=== PATIENT | male | born 1945 | race Caucasian/White ===

== ENCOUNTER 2016-12-29 01:04 | Emergency (ER) | payer MEDICARE, BC ==
[2016-12-29 01:17] VITALS: BP 171/94
[2016-12-29] MEDS ORDERED: predniSONE 20 MG Tab PO ONE (01:18)
[2016-12-29] MEDS ORDERED: Gabapentin 300 MG Cap PO ONE (01:19)
[2016-12-29] MEDS ORDERED: Ketorolac 30 MG/ML SDV IM ONE (01:19)
--- NOTE | 2016-12-29 01:26 | EDM.PDOC ---
ED HPI GENERAL MEDICAL PROBLEM - General Chief Complaint: Lower Extremity Injury/Pain Stated Complaint: LT LEG PAIN Time Seen by Provider: 12/29/16 01:10 Source of Information: Reports: Patient, Family History Limitations: Reports: No Limitations - History of Present Illness INITIAL COMMENTS - FREE TEXT/NARRATIVE: 71 yo male here with L sided sciatica sx's. Went to a chiropractor yesterday and states this made things worse. Has an appt to see one of the local PA's later today, but was not getting sufficient relief from ibuprofen/acetaminophen so that he could sleep. His sx's have been coming on for over a week. Onset: Gradual Onset Date: 12/19/16 Duration: Day(s):, Getting Worse Location: Reports: Lower Extremity, Left Quality: Reports: Ache Severity: Severe Improves with: Reports: None Worsens with: Reports: Movement Context: Reports: Other (unknown) Associated Symptoms: Reports: No Other Symptoms Treatments INTERNAL AUDIT DIRECTOR: Reports: Acetaminophen, NSAIDS Left Leg Pain Score (Numeric/FACES): 10 - Related Data Allergies Allergy/AdvReac Type Severity Reaction Status Date / Time No Known Allergies Allergy Verified 12/29/16 01:09 Home Meds: Home Meds Lisinopril [Zestril] 5 mg PO DAILY 05/02/15 [History] Lutein 20 mg PO DAILY 05/02/15 [History] Famotidine 40 mg PO DAILY #30 tablet 12/28/15 [Rx] Max-3 Fatty Acids [Fish Oil] 1,000 mg PO DAILY 12/28/15 [History] atorvaSTATin [Lipitor] 10 mg PO BEDTIME 12/29/16 [History] Past Medical History HEENT History: Reports: Impaired Vision Cardiovascular History: Reports: Hypertension Genitourinary History: Reports: Prostate Disorder - Past Surgical History Other Male Surgeries/Procedures: PROSTATE SURGERY Social & Family History - Tobacco Use Smoking Status *Q: Never Smoker Years of Tobacco use: 20 Used Tobacco, but Quit: Yes Second Hand Smoke Exposure: No - Caffeine Use Caffeine Use: Reports: Coffee - Recreational Drug Use Recreational Drug Use: No Review of Systems - Review of Systems Review Of Systems: See Below Constitutional: Reports: No Symptoms Respiratory: Reports: No Symptoms Cardiovascular: Reports: No Symptoms GI/Abdominal: Reports: No Symptoms Genitourinary: Reports: No Symptoms Musculoskeletal: Reports: Other (L hip region pain.). Denies: Back Pain Skin: Reports: No Symptoms Neurological: Reports: Numbness (Areas of his left leg) Psychiatric: Reports: No Symptoms ED EXAM, GENERAL - Physical Exam Exam: See Below Exam Limited By: No Limitations General Appearance: Alert, WD/WN, No Apparent Distress Ear Exam: Bilateral Ear: Auricle Normal Nose: Normal Inspection Throat/Mouth: Normal Inspection, Normal Lips, Normal Oropharynx, Normal Voice, No Airway Compromise Head: Atraumatic, Normocephalic Neck: Normal Inspection, Supple Respiratory/Chest: No Respiratory Distress, Lungs Clear, Normal Breath Sounds, No Accessory Muscle Use Cardiovascular: Regular Rate, Rhythm, No Edema GI/Abdominal: Normal Bowel Sounds, Soft, No Distention Back Exam: Normal Inspection, Full Range of Motion. No: CVA Tenderness (R), CVA Tenderness (L), Muscle Spasm, Paraspinal Tenderness, Vertebral Tenderness Extremities: Normal Inspection, Normal Range of Motion, Non-Tender, Other (No limitation to internal/external rotation of the L hip.) Neurological: Alert, Oriented, CN II-XII Intact, Normal Cognition, Other ( Straight leg raising positive on the left. ) Psychiatric: Normal Affect, Normal Mood Skin Exam: Warm, Dry, Intact, Normal Color, No Rash Lymphatic: No Adenopathy Course - Vital Signs Last Recorded V/S: Last Vital Signs Temp 37.1 C 12/29/16 01:15 Pulse 103 H 12/29/16 01:15 Resp 20 12/29/16 01:15 BP 171/94 H 12/29/16 01:15 Pulse Ox 99 12/29/16 01:15 - Orders/Labs/Meds Orders: Active Orders 24 hr Category Date Time Status Gabapentin [Neurontin] Med 12/29/16 01:19 Once 300 mg PO ONETIME ONE Ketorolac [Toradol] Med 12/29/16 01:19 Once 30 mg IM ONETIME ONE predniSONE Med 12/29/16 01:18 Once 40 mg PO ONETIME ONE Medication Orders Gabapentin (Neurontin) 300 mg PO ONETIME ONE Stop: 12/29/16 01:20 Ketorolac Tromethamine (Toradol) 30 mg IM ONETIME ONE Stop: 12/29/16 01:20 Prednisone (Prednisone) 40 mg PO ONETIME ONE Stop: 12/29/16 01:19 Meds: Medications Generic Name Dose Route Start Last Admin Trade Name Nita PRN Reason Stop Dose Admin Gabapentin 300 mg 12/29/16 01:19 Neurontin PO 12/29/16 01:20 ONETIME ONE Ketorolac Tromethamine 30 mg 12/29/16 01:19 Toradol IM 12/29/16 01:20 ONETIME ONE Prednisone 40 mg 12/29/16 01:18 Prednisone PO 12/29/16 01:19 ONETIME ONE Departure - Departure Time of Disposition: 01:45 Disposition: Home, Self-Care 01 Condition: Fair Clinical Impression: Sciatica of left side - Discharge Information Referrals: Loulou Nieto, INPATIENT SERVICES RN [Primary Care Provider] - - My Orders Last 24 Hours: My Active Orders 12/29/16 01:18 predniSONE 40 mg PO ONETIME ONE 12/29/16 01:19 Gabapentin [Neurontin] 300 mg PO ONETIME ONE Ketorolac [Toradol] 30 mg IM ONETIME ONE - Assessment/Plan Last 24 Hours: My Active Orders 12/29/16 01:18 predniSONE 40 mg PO ONETIME ONE 12/29/16 01:19 Gabapentin [Neurontin] 300 mg PO ONETIME ONE Ketorolac [Toradol] 30 mg IM ONETIME ONE
[2016-12-29] MEDS ORDERED: Acetaminophen/oxyCODONE 325-5 MG Tab PO ONE (01:34)
== END 2016-12-29 01:35 | disposition home or self-care (01) ==
LOC: FB.ED 01:04
DX: M54.32 Sciatica, left side (principal); H54.7 Unspecified visual loss; I10 Essential (primary) hypertension; Z79.899 Other long term (current) drug therapy
CPT/HCPCS: 96372; 99283; A9270; J1885

== ENCOUNTER 2017-07-18 07:05 | Day surgery (SDC) | payer MEDICARE, BC ==
[2017-07-18] MEDS ORDERED: Sodium Chloride 0.9% 10 ML Syringe FLUSH PRN (07:15)
[2017-07-18] MEDS ORDERED: Lactated Ringers 1,000 ML IV SCH (07:15)
--- NOTE | 2017-07-18 08:25 | PCM.HP ---
H&P History of Present Illness - General Date of Service: 07/18/17 Admit Problem/Dx: Admission Diagnosis/Problem Admission Diagnosis/Problem Colonoscopy Source of Information: Patient, Old Records History Limitations: Reports: No Limitations - History of Present Illness Initial Comments - Free Text/Narative: Here for colonoscopy for hx of polyps - Related Data Allergies/Adverse Reactions: Allergies Allergy/AdvReac Type Severity Reaction Status Date / Time No Known Allergies Allergy Verified 07/15/17 14:31 Home Medications: Home Meds Lisinopril [Zestril] 5 mg PO DAILY 05/02/15 [History] Lutein 20 mg PO DAILY 05/02/15 [History] [place]-3 Fatty Acids [Fish Oil] 1,000 mg PO DAILY 12/28/15 [History] Acetaminophen/oxyCODONE [Percocet 325-7.5 MG] 1 - 2 tab PO Q4H PRN #20 tab 12/29 [Rx] atorvaSTATin [Lipitor] 10 mg PO BEDTIME 12/29/16 [History] Ascorbic Acid [Vitamin C] 250 mg PO DAILY 07/15/17 [History] Famotidine 40 mg PO DAILY PRN 07/15/17 [History] Losartan [Cozaar] 25 mg PO DAILY 07/15/17 [History] Lutein 20 mg PO DAILY 07/15/17 [History] Multivitamin with Minerals [Multiple Vitamin] 1 tab PO DAILY 07/15/17 [History] Omeprazole 40 mg PO DAILY 07/15/17 [History] Propylene Glycol/Peg 400 [Systane 0.3-0.4% Eye Drops] 1 drop OP DAILY 07/15/17 [ History] Sildenafil Citrate [Sildenafil] 20 mg PO ASDIRECTED PRN 07/15/17 [History] metFORMIN [Glucophage XR] 500 mg PO BIDMEALS 07/15/17 [History] Past Medical History HEENT History: Reports: Impaired Vision Cardiovascular History: Reports: High Cholesterol, Hypertension Respiratory History: Reports: Sleep Apnea Other Respiratory History: STATES TESTED, BUT FOUND NOT TO HAVE ISSUES. Gastrointestinal History: Reports: Gastritis Genitourinary History: Reports: Prostate Disorder Other Genitourinary History: STATES HAD PROSTATE REMOVED A FEW YEARS AGO. Musculoskeletal History: Reports: None Neurological History: Reports: None Psychiatric History: Reports: None Endocrine/Metabolic History: Reports: Diabetes, Type II Hematologic History: Reports: None Immunologic History: Reports: None Oncologic (Cancer) History: Reports: Basal Cell Carcinoma Dermatologic History: Reports: None, Other (See Below) Other Dermatologic History: SKIN CA OF NECK - Infectious Disease History Infectious Disease History: Reports: Mumps - Past Surgical History Head Surgeries/Procedures: Reports: None GI Surgical History: Reports: Colonoscopy, EGD, Hernia, Inguinal Other GI Surgeries/Procedures: BILATERAL INGUINAL HERNIA Other Male Surgeries/Procedures: PROSTATE SURGERY Social & Family History - Family History GI: Reports: Colon Polyps Other GI Family History: STATES BELIEVES DAD HAD COLON POLYPS - Tobacco Use Smoking Status *Q: Never Smoker Years of Tobacco use: 20 Used Tobacco, but Quit: Yes Second Hand Smoke Exposure: No - Caffeine Use Caffeine Use: Reports: Coffee - Recreational Drug Use Recreational Drug Use: No H&P Review of Systems - Review of Systems: Review Of Systems: ROS reveals no pertinent complaints other than HPI. General: Reports: No Symptoms Pulmonary: Reports: No Symptoms Cardiovascular: Reports: No Symptoms Gastrointestinal: Reports: No Symptoms Exam - Exam Exam: See Below - Vital Signs Vital Signs: Last Vital Signs Temp 98.2 F 07/18/17 07:43 Pulse 58 L 07/18/17 07:43 Resp 20 07/18/17 07:43 BP 136/94 H 07/18/17 07:43 Pulse Ox 100 07/18/17 07:43 Weight: 92.714 kg - Exam General: Alert, Oriented Lungs: Clear to Auscultation, Normal Respiratory Effort Cardiovascular: Regular Rate, Regular Rhythm GI/Abdominal Exam: Soft, Non-Tender *Q Meaningful Use (ADM) - VTE *Q VTE Criteria *Q: - Stroke *Q Stroke Criteria *Q: - AMI *Q AMI Criteria *Q: Problem List Initiated/Reviewed/Updated: Yes Orders Last 24hrs: Active Orders 24 hr Category Date Time Status Patient Status [ADT] Routine ADT 07/18/17 07:15 Ordered Blood Glucose Check, Bedside [RC] ONETIME Care 07/18/17 07:15 Active Patient to Empty Bladder [RC] ASDIRECTED Care 07/18/17 07:15 Active Verify Patient Consent Obtain [RC] ASDIRECTED Care 07/18/17 07:15 Active Nothing Per Oral Diet [DIET] Diet 07/18/17 Breakfast Ordered Lactated Ringers [Ringers, Lactated] 1,000 ml Med 07/18/17 07:15 Active IV ASDIRECTED Sodium Chloride 0.9% [Saline Flush] Med 07/18/17 07:15 Active 10 ml FLUSH ASDIRECTED PRN Peripheral IV Insertion Adult [OM.PC] Routine Oth 07/18/17 07:15 Ordered Medication Orders Lactated Ringer's (Ringers, Lactated) 1,000 mls @ 125 mls/hr IV ASDIRECTED CJ Last Admin: 07/18/17 07:58 Dose: 125 mls/hr Sodium Chloride (Saline Flush) 10 ml FLUSH ASDIRECTED PRN PRN Reason: Keep Vein Open Assessment/Plan Comment:: Hx Colon polyps; ok to proceed with colonoscopy
[2017-07-18] MEDS ORDERED: Midazolam 1 MG/ML 2 ML SDV IV ONE (08:35)
[2017-07-18] MEDS ORDERED: Propofol 200 MG/20 ML SDV IV ONE (08:35)
--- NOTE | 2017-07-18 09:04 | PCM.OPNOTE ---
- General Post-Op/Procedure Note Date of Surgery/Procedure: 07/18/17 Operative Procedure(s): Colonoscopy Findings: Sig tics Pre Op Diagnosis: Hx Polyps Post-Op Diagnosis: Same Anesthesia Technique: MAC Primary Surgeon: Harlan Schilling Anesthesia Provider: Kiah Navarro Complications: None Condition: Good
[2017-07-18 09:52] VITALS: BP 132/95
--- NOTE | 2017-07-18 10:52 | OR ---
DATE OF OPERATION: 07/18/2017 SURGEON: Harlan Schilling MD PREOPERATIVE DIAGNOSES: 1. History of colon polyps. 2. Diverticulosis. POSTOPERATIVE DIAGNOSIS: Sigmoid diverticulosis. PROCEDURE PERFORMED: Colonoscopy. ANESTHESIA: IV sedation. PROCEDURE IN DETAIL: The patient was brought to the procedure room, where he was placed on his left side and IV sedation administered. Digital rectal exam was performed which was normal. The colonoscope was inserted and advanced to the level of the cecum without difficulty. Cecal position was confirmed by identifying the appendiceal lumen and ileocecal valve. Prep was good and surfaces were well visualized. Upon withdrawing the scope, the ascending, transverse, and descending colon were normal in appearance. The sigmoid colon had multiple diverticula present. Rectum was normal and retroflexion was normal. Air was removed and the scope withdrawn. The patient tolerated the procedure well and returned to recovery in stable condition. RECOMMENDATION: Routine colonoscopy again in five years. /[id number] JAMILA/SANTIAGO
== END 2017-07-18 10:17 | disposition home or self-care (01) ==
LOC: FB.SDS 07:05
PROVIDERS: ATTEND Surgery
DX: Z12.11 Encounter for screening for malignant neoplasm of colon (principal); Z86.010 Personal history of colon polyps; K57.30 Diverticulosis of large intestine without perforation or abscess without bleeding; I10 Essential (primary) hypertension; E78.00 Pure hypercholesterolemia, unspecified; G47.30 Sleep apnea, unspecified; E11.9 Type 2 diabetes mellitus without complications; Z79.84 Long term (current) use of oral hypoglycemic drugs; Z79.899 Other long term (current) drug therapy
CPT/HCPCS: 00811-QZ; 82962; J2250; J2704; J7120